=== PATIENT | male | born 1955 | race African-American/Black ===

== ENCOUNTER 2016-08-30 06:43 | Day surgery (SDC) | payer OTHER ==
[2016-08-15 15:13] VITALS: BMI 20.6
[2016-08-30] MEDS ORDERED: DEXAMETHASONE SOD PHOSPHATE/PF 10 MG/ML SDV ONE (06:50)
[2016-08-30] MEDS ORDERED: MIDAZOLAM HCL 2 MG/2 ML SINGLE DOSE VIAL ONE ×3 (06:50→08:39)
[2016-08-30] MEDS ORDERED: ROPIVACAINE HCL 0.5% 30ML VIAL ONE (06:51)
[2016-08-30] MEDS ORDERED: LIDOCAINE HCL 2% 100 MG/5 ML DISP.SYRIN ONE (06:56)
[2016-08-30] MEDS ORDERED: PHENYLEPHRINE HCL 10 MG/1 ML SINGLE DOSE VIAL ONE (06:56)
[2016-08-30] MEDS ORDERED: ePHEDrine SULFATE 50 MG/1 ML AMPULE ONE (06:56)
[2016-08-30] MEDS ORDERED: ROCURONIUM BROMIDE 50 MG/5 ML VIAL ONE (06:57)
[2016-08-30] MEDS ORDERED: SUCCINYLCHOLINE CHLORIDE 200 MG/10 ML VIAL ONE (06:57)
[2016-08-30] MEDS ORDERED: PROPOFOL 20 ML ONE ×7 (06:57→08:58)
[2016-08-30] MEDS ORDERED: BUPIVACAINE HCL/EPINEPHRINE/PF 30 ML VIAL IJ ONE (07:07)
[2016-08-30] MEDS ORDERED: EPINEPHrine 1:1,000 1 MG/1 ML - 30ML VIAL (INJECTION) ONE (07:21)
[2016-08-30] MEDS ORDERED: PROMETHAZINE HCL 25 MG/1 ML VIAL IVPUSH PRN (09:19)
[2016-08-30] MEDS ORDERED: oxyCODONE HCL 5 MG TABLET PO PRN ×2 (09:19→10:30)
[2016-08-30] MEDS ORDERED: ONDANSETRON 4 MG/2 ML VIAL IVPUSH PRN (09:24)
--- NOTE | 2016-08-30 09:29 | HP ---
Admitting History and Physical - Admission History of Present Illness: The patient is a 61 yo male with a history of Right shoulder for an acute injury years ago. More recently he injured himself while assisting his after she fell from bed. He has pain in his right shoulder without any numbness , tingling to the extremity. The patient denies any CP, SOB, cough. History Source: Patient Limitations to Obtaining History: No Limitations - Past Medical History Cardiovascular: No: Deep Vein Thrombosis Pulmonary: Yes: COPD Hepatobiliary: Yes: Hepatitis C Renal/: No: Hematuria, UTI Heme/Onc: No: Bleeding Disorder - Past Surgical History Additional Past Surgical History: anterior cervial fusion, right shoulder surgery for injury, right achilles tendon repair, liver resection for cancer - Smoking History Smoking history: Former smoker Have you smoked in the past 12 months: No If you are a former smoker, when did you quit?: 6 yrs ago - Alcohol/Substance Use Hx Alcohol Use: No Home Medications - Allergies Allergies/Adverse Reactions: Allergies Allergy/AdvReac Type Severity Reaction Status Date / Time paroxetine HCl [From Paxil] Allergy Intermediate Itching Verified 08/30/16 07:22 Penicillins Allergy Intermediate Itching Verified 08/30/16 07:22 raw onion Allergy Intermediate Itching Uncoded 08/30/16 07:22 - Home Medications Home Medications: Ambulatory Orders Albuterol 0.083% Nebulizer Haydee [Ventolin 0.083%] 1 neb NEB Q4H PRN 08/15/16 Albuterol Sulfate Inhaler - [Ventolin Hfa Inhaler -] 1 - 2 inh PO Q4H PRN Budesonide/Formeterol Fumarate [SYMBICORT 160/4.5mcg -] 1 inh PO BID 08/15/16 Clonazepam [KlonoPIN] 0.5 mg PO HS 08/15/16 Cyclobenzaprine HCl 5 mg PO BID PRN 08/15/16 Dicyclomine HCl [Bentyl -] 20 mg PO BID PRN 08/15/16 Docusate Sodium [Colace -] 200 mg PO DAILY PRN 08/15/16 Gabapentin [Neurontin] 300 mg PO BID 08/15/16 Lisinopril [Prinivil] 5 mg PO DAILY 08/15/16 Loperamide HCl [Imodium A-D] 2 tab PO BID 08/15/16 Metformin HCl [Metformin HCl ER] 500 mg PO DAILY 08/15/16 Metoprolol Tartrate [Lopressor -] 12.5 mg PO BID 08/15/16 Montelukast Na [Singulair -] 10 mg PO HS 08/15/16 Omeprazole 40 mg PO BID 08/15/16 Sennosides [Senna] 2 tab PO HS 08/15/16 Topiramate [Topamax] 25 mg PO BID PRN 08/15/16 Topiramate [Topamax] 50 mg PO BID PRN 08/15/16 Tramadol HCl [Ultram] 50 mg PO Q8H PRN 08/15/16 Review of Systems - Review of Systems Constitutional: denies: Chills, Fever Neck: denies: Decreased ROM, Pain on Movement Cardiovascular: denies: Chest Pain, Edema, Palpitations Respiratory: denies: Cough, SOB Gastrointestinal: reports: Other (new lesions recently noted on his liver and is having futher workup.). denies: Abdominal Pain Genitourinary: denies: Burning, Dysuria Musculoskeletal: reports: Joint Pain (right shoulder). denies: Back Pain, Joint Swelling Neurological: reports: Parasthesia (to right foot). denies: Headache Hematology/Lymphatic: denies: Easily Bruised, Excessive Bleeding Physical Examination Vital Signs: Vital Signs Temperature 97.6 F 08/30/16 07:33 Pulse Rate 84 08/30/16 07:33 Respiratory Rate 18 08/30/16 07:33 Blood Pressure 136/87 08/30/16 07:33 O2 Sat by Pulse Oximetry (%) 96 08/30/16 07:48 Constitutional: Yes: Well Nourished, Calm HENT: Yes: WNL, Atraumatic, Normocephalic Neck: Yes: WNL, Supple, Trachea Midline Cardiovascular: Yes: WNL, Regular Rate and Rhythm Respiratory: Yes: WNL, Regular, CTA Bilaterally Gastrointestinal: Yes: WNL, Normal Bowel Sounds, Soft Musculoskeletal: Yes: Joint Stiffness (right shoulder with healed vertical/ anterior scar). No: Joint Swelling Extremities: No: Calf Tenderness Edema: No Peripheral Pulses WNL: Yes Peripheral Pulses: Left Doralis Pedis: 2+, Right Dorsalis Pedis: 2+ ...Motor Strength: WNL, LUE, LLE, RUE, SISSYE Psychiatric: Yes: WNL, Alert, Oriented Assessment/Plan 61 yo male with right shoulder pain/rotator cuff tear for arthroscopy today IV abx at time of incision DVT ppx with SCDs/early ambulation medical clearance in chart
[2016-08-30] MEDS ORDERED: LACTATED RINGERS SOLUTION 1,000 ML IV SCH (09:30)
[2016-08-30] MEDS ORDERED: oxyCODONE HCL 10 MG SUSTAINED ACTING TABLET PO ONE (10:30)
--- NOTE | 2016-08-30 10:34 | OP ---
Operative Note - Note: Operative Date: 08/30/16 Pre-Operative Diagnosis: right shoulder rotator cuff tear Operation: RSA, debridement, decompression Surgeon: Bayron Roger Anesthesia: General Operative Report Dictated: Yes
--- NOTE | 2016-08-30 10:34 | DS ---
Physical Examination Vital Signs: Vital Signs Temperature 97.6 F 08/30/16 07:33 Pulse Rate 84 08/30/16 07:33 Respiratory Rate 18 08/30/16 07:33 Blood Pressure 136/87 08/30/16 07:33 O2 Sat by Pulse Oximetry (%) 96 08/30/16 07:48 Discharge Summary Reason For Visit: ROTATOR CUFF TEAR RIGHT SHOULDER - Instructions Diet, Activity, Other Instructions: Post Operative Instructions: Shoulder Arthroscopy Dr Bayron Roger 1. Pain following a Shoulder Arthroscopy is variable and can be significant. Some patients will have more pain than others. You have been provided with a prescription for medication that contains a narcotic. You are not allowed to drive while on this medication. You should NOT take Tylenol (Acetaminophen) when taking the pain medication ( it will result in an overdose). Feel free to take medications such as Ibuprofen or Naprosyn in addition to the pain medicine if you do not have any problems with the NSAID class of medications. 2. Apply ice to the shoulder for 15 minutes every hour. You may continue this for as many days as necessary. 3. You may find sleeping on an incline (reclining chair) to be more comfortable for the first few days. 4. You may remove your sling when the arm is comfortable. 5. You may use the arm as tolerated. 6. You may remove the bandages in 48 hours. You may shower at that point. 7. Place band-aids on the sutures after your shower.Do not put any creams or lotions on the incision until after the sutures are removed. 8. Please call the office to schedule a visit to have your sutures removed. 9. If for any reason you believe you may have an infection or are concerned, please feel free to call me. I can be reached through our office number 24 hours a day. 10. Please call our office with any questions; we will review the surgical findings during your post-operative visit. Disposition: HOME - Home Medications Comprehensive Discharge Medication List: Ambulatory Orders Albuterol 0.083% Nebulizer Haydee [Ventolin 0.083%] 1 neb NEB Q4H PRN 08/15/16 Albuterol Sulfate Inhaler - [Ventolin Hfa Inhaler -] 1 - 2 inh PO Q4H PRN Budesonide/Formeterol Fumarate [SYMBICORT 160/4.5mcg -] 1 inh PO BID 08/15/16 Clonazepam [KlonoPIN] 0.5 mg PO HS 08/15/16 Cyclobenzaprine HCl 5 mg PO BID PRN 08/15/16 Dicyclomine HCl [Bentyl -] 20 mg PO BID PRN 08/15/16 Docusate Sodium [Colace -] 200 mg PO DAILY PRN 08/15/16 Gabapentin [Neurontin] 300 mg PO BID 08/15/16 Lisinopril [Prinivil] 5 mg PO DAILY 08/15/16 Loperamide HCl [Imodium A-D] 2 tab PO BID 08/15/16 Metformin HCl [Metformin HCl ER] 500 mg PO DAILY 08/15/16 Metoprolol Tartrate [Lopressor -] 12.5 mg PO BID 08/15/16 Montelukast Na [Singulair -] 10 mg PO HS 08/15/16 Omeprazole 40 mg PO BID 08/15/16 Sennosides [Senna] 2 tab PO HS 08/15/16 Topiramate [Topamax] 25 mg PO BID PRN 08/15/16 Topiramate [Topamax] 50 mg PO BID PRN 08/15/16 Tramadol HCl [Ultram] 50 mg PO Q8H PRN 08/15/16
[2016-08-30] MEDS ORDERED: ONDANSETRON 4 MG/2 ML VIAL ONE (11:25)
[2016-08-30 12:24] VITALS: TEMP 97.5
[2016-08-30] MEDS ORDERED: oxyCODONE HCL 10 MG SUSTAINED ACTING TABLET ONE (12:49)
[2016-08-30 13:41] VITALS: BP 139/74; PULSE 88
--- NOTE | 2016-08-30 13:58 | SURG ---
Surgery Log Sorting Supervisor Note Log Sorting Supervisor: Summer Mckinney PA-C Date of Service: 08/30/16 Diagnosis: right shoulder rotator cuff tear Procedure: RSA, debridement, decompression I was present for the entirety of the operative procedure. For further detail, please refer to operative report. Visit type - Case Type Case Type: Scheduled Admission - Emergency Emergency Visit: Yes Care time: The patient presented to the Emergency Department on the above date and was hospitalized for further evaluation of their emergent condition. - New patient This patient is new to me today: Yes Date on this admission: 08/30/16 - Critical Care Critical Care patient: No
--- NOTE | 2016-09-04 16:04 | PATH ---
Surgical Pathology Report Patient Name: NANDO ALLEN [facility]. Rec. #: [id number] /Age/Gender: 1955 (Age: 61) / M Account: [id number] [facility] Taken: 08/30/2016 Received: 08/30/2016 Reported: 09/04/2016 Physicians: Bayron Roger M.D. Specimen(s) Received SHAVINGS RIGHT SHOULDER Clinical History Rotator cuff tear right shoulder Final Diagnosis SHOULDER, RIGHT, ARTHROSCOPIC SHAVINGS: FIBROSYNOVIAL AND FIBROADIPOSE TISSUE. Electronically Signed Carrie Tapia M.D. Gross Description Received in formalin, labeled "shavings right shoulder," is a 3.0 x 2.0 x 0.4 cm. aggregate of leyva-yellow soft tissue fragments. A call center representative portion is submitted in one cassette. /08/30/201608/30/2016
== END 2016-08-30 13:40 | disposition home or self-care (01) ==
LOC: FASU 06:43
PROVIDERS: ATTEND Orthopaedic Surgery
PROC: 0RNJ4ZZ Release Right Shoulder Joint, Percutaneous Endoscopic Approach (ICD-10-PCS; 2016-08-30)
PROC: 0LB14ZZ Excision of Right Shoulder Tendon, Percutaneous Endoscopic Approach (ICD-10-PCS; principal; 2016-08-30 10:10)
DX: M75.121 Complete rotator cuff tear or rupture of right shoulder, not specified as traumatic (principal); M75.51 Bursitis of right shoulder
CPT/HCPCS: 88304-TC; 94760